=== PATIENT | male | born 1940 | race American Indian/Alaskan Native ===

== ENCOUNTER 2019-07-11 16:07 | Observation (INO) | payer MEDICARE ==
[2019-07-11 17:24] LABS: Basophils % (Auto) 0.5 % (0.0-1.8); Eosinophils % (Auto) 0.5 % (0.0-4.3); Hematocrit 38.5 % (35.5-45.6); Hemoglobin 13.2 gm/dl (11.8-15.2); Lymphocytes % (Auto) 17.6 % (13.4-35.0); Mean Corpuscular HGB Conc 34 % (32-34); Mean Corpuscular Volume 95 fl (84-94); Monocytes # (Auto) 0.5 K/mm3 (0.0-0.8); Monocytes % (Auto) 8.5 % (0.0-7.3); Platelet Count 166 K/mm3 (140-440); Red Blood Count 4.07 M/mm3 (3.65-5.03)
[2019-07-11] MEDS ORDERED: NACL 0.9% 1000 ML 1,000 ML IV ONE (17:40)
--- NOTE | 2019-07-11 17:45 | Emergency Department Report ---
ED General Adult HPI - General Chief complaint: Syncope Stated complaint: HEAT EXHAUSTION Time Seen by Provider: 07/11/19 17:11 Source: patient, EMS Mode of arrival: Stretcher Limitations: No Limitations - History of Present Illness Initial comments: This is an 79-year-old man who arrives with high presume his son. His son states he found him with a "joint". 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 The patient seems to have Nadia indifferance related to his emergency visit or perhaps is experiencing the effects of THC. He does however deny marijuana use. He denies injury. He denies syncope. His son states that he did pass out just briefly but had no apparent color change and did continue breathing. He states that he was very hot outside and that the patient may of had excessive heat exposure. -: minutes(s) - Related Data Allergies Allergy/AdvReac Type Severity Reaction Status Date / Time No Known Allergies Allergy Unverified 07/11/19 16:57 ED Review of Systems ROS: Stated complaint: HEAT EXHAUSTION Other details as noted in HPI Constitutional: denies: chills, fever Eyes: denies: eye pain, eye discharge, vision change ENT: denies: ear pain, throat pain Respiratory: denies: cough, shortness of breath, wheezing Cardiovascular: denies: chest pain, palpitations Endocrine: no symptoms reported Gastrointestinal: abdominal pain (initially did not complain of this but later said he had some suprapubic discomfort). denies: nausea, diarrhea Genitourinary: denies: urgency, dysuria Musculoskeletal: denies: back pain, joint swelling, arthralgia Skin: denies: rash, lesions Neurological: denies: headache, weakness, paresthesias Psychiatric: denies: anxiety, depression Hematological/Lymphatic: denies: easy bleeding, easy bruising ED Past Medical Hx - Past Medical History Hx Hypertension: No - Surgical History Past Surgical History?: Yes Additional Surgical History: hernia - Social History Smoking Status: Former Smoker Substance Use Type: Alcohol, Marijuana ED Physical Exam - General Limitations: No Limitations General appearance: alert, in no apparent distress - Head Head exam: Present: atraumatic, normocephalic - Eye Eye exam: Present: normal appearance, PERRL, EOMI. Absent: scleral icterus - ENT ENT exam: Present: mucous membranes moist - Neck Neck exam: Present: normal inspection. Absent: tenderness, meningismus - Respiratory Respiratory exam: Present: normal lung sounds bilaterally. Absent: respiratory distress - Cardiovascular Cardiovascular Exam: Present: regular rate, normal rhythm. Absent: systolic murmur, diastolic murmur, rubs, gallop - GI/Abdominal GI/Abdominal exam: Present: soft, normal bowel sounds. Absent: distended, tenderness, guarding, rebound, rigid - Rectal Rectal exam: Present: deferred - Extremities Exam Extremities exam: Present: normal inspection - Back Exam Back exam: Present: normal inspection - Neurological Exam Neurological exam: Present: alert, oriented X3, CN II-XII intact. Absent: motor sensory deficit (NIHSS is 0) - Psychiatric Psychiatric exam: Present: normal affect, normal mood - Skin Skin exam: Present: warm, dry, intact, normal color. Absent: rash ED Course Vital Signs 07/11/19 07/11/19 16:49 17:17 Temperature 97.4 F L Pulse Rate 77 Respiratory 18 18 Rate Blood Pressure 127/73 O2 Sat by Pulse 99 100 Oximetry ED Medical Decision Making - Lab Data Result diagrams: 07/11/19 17:15 07/11/19 17:15 Laboratory Results - last 24 hr 07/11/19 07/11/19 16:46 17:15 WBC 5.4 RBC 4.07 Hgb 13.2 Hct 38.5 MCV 95 H MCH 33 H MCHC 34 RDW 14.0 Plt Count 166 Lymph % (Auto) 17.6 [place] % (Auto) 8.5 H Eos % (Auto) 0.5 Baso % (Auto) 0.5 Lymph # 1.0 L [place] # 0.5 Eos # 0.0 Baso # 0.0 Seg Neutrophils % 72.9 H Seg Neutrophils # 4.0 POC Glucose 104 Laboratory Results - last 24 hr 07/11/19 07/11/19 07/11/19 16:46 17:15 17:15 WBC 5.4 RBC 4.07 Hgb 13.2 Hct 38.5 MCV 95 H MCH 33 H MCHC 34 RDW 14.0 Plt Count 166 Lymph % (Auto) 17.6 [place] % (Auto) 8.5 H Eos % (Auto) 0.5 Baso % (Auto) 0.5 Lymph # 1.0 L [place] # 0.5 Eos # 0.0 Baso # 0.0 Seg Neutrophils % 72.9 H Seg Neutrophils # 4.0 PT INR APTT Sodium 137 Potassium 3.4 L Chloride 100.0 Carbon Dioxide 25 Anion Gap 15 BUN 10 Creatinine 0.9 Estimated GFR > 60 BUN/Creatinine Ratio 11 Glucose 111 H POC Glucose 104 Calcium 8.7 Magnesium Total Bilirubin 0.40 AST 28 ALT 30 Alkaline Phosphatase 75 Total Creatine Kinase CK-MB (CK-2) CK-MB (CK-2) Rel Index Troponin T < 0.010 NT-Pro-B Natriuret Pep Total Protein 6.7 Albumin 3.8 L Albumin/Globulin Ratio 1.3 07/11/19 07/11/19 17:30 17:30 WBC RBC Hgb Hct MCV MCH MCHC RDW Plt Count Lymph % (Auto) [place] % (Auto) Eos % (Auto) Baso % (Auto) Lymph # [place] # Eos # Baso # Seg Neutrophils % Seg Neutrophils # PT 13.5 INR 1.06 APTT 22.5 L Sodium Potassium Chloride Carbon Dioxide Anion Gap BUN Creatinine Estimated GFR BUN/Creatinine Ratio Glucose POC Glucose Calcium Magnesium 2.00 Total Bilirubin AST ALT Alkaline Phosphatase Total Creatine Kinase 194 H CK-MB (CK-2) 2.8 CK-MB (CK-2) Rel Index 1.4 Troponin T < 0.010 NT-Pro-B Natriuret Pep 28.39 Total Protein Albumin Albumin/Globulin Ratio - EKG Data -: EKG Interpreted by Me EKG shows normal: sinus rhythm, axis, intervals, QRS complexes, ST-T waves Rate: normal - EKG Data Interpretation: other (somewhat low voltage RSR in V1 and V2 V3 qs consistent with old inferior dz ) - Radiology Data Radiology results: image reviewed (I don't see anything acute) Critical care attestation.: If time is entered above; I have spent that time in minutes in the direct care of this critically ill patient, excluding procedure time. ED Disposition Clinical Impression: Encephalopathy acute Syncope Qualifiers: Syncope type: heat syncope Encounter type: initial encounter Qualified Code(s): T67.1XXA - Heat syncope, initial encounter Disposition: OP ADMIT IP TO THIS HOSP Is pt being admited?: Yes Does the pt Need Aspirin: Yes Condition: Stable Instructions: Syncope (ED) Time of Disposition: 19:18
[2019-07-11 17:49] LABS: Alanine Aminotransferase 30 units/L (7-56); Albumin 3.8 g/dL (3.9-5); BUN/Creatinine Ratio 11; Blood Urea Nitrogen 10 mg/dL (9-20); Calcium 8.7 mg/dL (8.4-10.2); Hemolysis Index 5
[2019-07-11 18:04] LABS: Creatine Kinase MB 2.8 ng/mL (0.0-4.0)
[2019-07-11 18:07] LABS: INR 1.06 (0.87-1.13)
[2019-07-11 18:09] LABS: Partial Thromboplastin Time 22.5 Sec. (24.2-36.6)
--- NOTE | 2019-07-11 19:58 | Cat Scan Report ---
. CT head/brain wo con INDICATION: syncope. TECHNIQUE: All CT scans at this location are performed using the following dose modulation technique: Automated exposure control. CONTRAST: None. COMPARISON: None available. FINDINGS: The ventricular system is appropriate in size and configuration without midline shift. Nega tive for stroke or hemorrhage. A permeative lesion is seen at the posterior left frontal bone. There is associated periosteal reacti on and adjacent soft tissue. Approximate size is 3.5 cm. IMPRESSION: 1. Negative for stroke or hemorrhage. 2. Aggressive appearing lesion at the posterior left frontal bone with adjacent soft tissue involveme nt. Metastatic disease and primary bone tumor are the most likely etiologies. An atypical presentatio n of meningioma is thought to be less likely. Signer Name: Magdiel Shaffer MD Signed: 07/11/2019 7:54 PM Workstation Name: [id number]
[2019-07-11] MEDS: ASPIRIN PO SCH (20:01)
[2019-07-11 21:22] LABS: Bilirubin,Urine NEG (Negative); Blood,Urine SM (Negative); Color,Urine Straw (Yellow); Mucus,Urine FEW /HPF; Protein,Urine <15 mg/dL mg/dL (Negative); Urobilinogen,Urine < 2.0 mg/dL (<2.0); WBC,Urine < 1.0 /HPF (0.0-6.0)
[2019-07-11 21:32] LABS: Amphetamine Screen,Urine PRESUMPTIVE NEGATIVE; Benzodiazepines Screen,Urine PRESUMPTIVE NEGATIVE; Cocaine Screen,Urine PRESUMPTIVE NEGATIVE; Methadone Screen,Urine PRESUMPTIVE NEGATIVE; Opiate Screen,Urine PRESUMPTIVE NEGATIVE
[2019-07-11 21:44] LABS: Cannabinoid Screen,Urine PRESUMPTIVE POSITIVE
[2019-07-11] MEDS ORDERED: TYLENOL PO PRN (22:30)
[2019-07-11] MEDS ORDERED: ZOFRAN IV PRN (22:30)
[2019-07-11] MEDS ORDERED: SODIUM CHLORIDE FLUSH SYRINGE 10 ML IV PRN (22:30)
[2019-07-11] MEDS ORDERED: DILAUDID IV PRN (22:30)
[2019-07-11] MEDS ORDERED: NACL 0.9% 1000 ML 1,000 ML IV SCH (23:00)
[2019-07-11] MEDS ORDERED: K-DUR PO ONE (23:00)
--- NOTE | 2019-07-11 23:00 | Event Note ---
Date: 07/11/19 See H/p in reports Acute encephalopathy Syncope Hypokalemia
[2019-07-11] MEDS: SODIUM CHLORIDE FLUSH SYRINGE 10 ML IV SCH (23:52)
--- NOTE | 2019-07-12 00:01 | History and Physical Report ---
CHIEF COMPLAINT: Passed out for a few seconds at home. Witnessed. HISTORY OF PRESENT ILLNESS: An 79-year-old with no significant past medical history and not taking any medications, brought in because he passed out. The patient was apparently exposed to heat and was sitting in gazebo with his friends for a few hours. The patient denies syncope, but as per son the patient actually passed out for a few seconds. No seizures. No cough, no fever or chills. No chest pain. No shortness of breath on exertion. The patient had excessive heat exposure today. Today's temperatures were around 90-95. PAST MEDICAL HISTORY: None. PAST SURGICAL HISTORY: Hernia repair. SOCIAL HISTORY: Former smoker of marijuana on a regular basis. Alcohol occasionally. FAMILY HISTORY: Significant for hypertension. REVIEW OF SYSTEMS: Significant for syncope and some diaphoresis. Otherwise, review of systems negative. A 14-point review of systems done. PHYSICAL EXAMINATION: GENERAL: Elderly male, cooperative during examination. Alert, oriented. VITAL SIGNS: Blood pressure is 127/73, temperature is 97.4, pulse is 77, respirations are 18, sats are 99%. HEENT: Unremarkable. Pupils equal and reactive. NECK: Supple with no lymphadenopathy, no thyromegaly. LUNGS: Clear to auscultation and percussion. Good air entry. CARDIOVASCULAR: S1, S2 heard. No gallop, no murmur, no rub. Apical impulse in left fifth intercostal space in midclavicular line. ABDOMEN: Soft and benign. No hepatosplenomegaly. No guarding, no rigidity. Hernial orifices are normal. EXTREMITIES: Good pedal pulses. No pedal edema. CENTRAL NERVOUS SYSTEM: Alert and oriented x 4, nonfocal exam. LABORATORY DATA: Significant for white count of 5400, H and H are 13.2 and 38.5, platelet count is 166,000. Electrolytes are normal except for potassium, which is 3.4. Total CK is 194. Albumin is 3.8. Urine is negative. Urine drug screen is positive for marijuana. CT of the head shows negative for stroke or hemorrhage. Aggressive appearing lesion in the posterior frontal lobe with adjacent soft tissue involvement. Metastatic disease and primary bone tumor are the most likely etiologies. No atypical presentation of meningioma, is thought to be less likely. EKG shows normal sinus rhythm, heart rate of 78 per minute, no acute ST-T wave changes. ASSESSMENT AND PLAN: 1. Syncope. Syncope workup, which includes echocardiogram, Lexiscan and carotid duplex scan. 2. Hypokalemia, supplemented. 3. Meningioma, high possibility. We will get an MRI of the brain. 4. Marijuana dependence. The patient counseled. 5. Deep venous thrombosis prophylaxis. The patient on Lovenox. In summary, the patient had syncope. CT abnormality on the CAT scan with a frontal bone tumor. Hypokalemia. Positive THC in the urine. JOB# [id number] VSM/NTS MICHELLE
[2019-07-12 05:50] LABS: Basophils % (Auto) 0.4 % (0.0-1.8); Eosinophils % (Auto) 0.6 % (0.0-4.3); Hematocrit 41.1 % (35.5-45.6); Hemoglobin 13.7 gm/dl (11.8-15.2); Lymphocytes # (Auto) 1.2 K/mm3 (1.2-5.4); Lymphocytes % (Auto) 18.9 % (13.4-35.0); Mean Corpuscular HGB Conc 33 % (32-34); Mean Corpuscular Volume 96 fl (84-94); Monocytes # (Auto) 0.6 K/mm3 (0.0-0.8); Platelet Count 165 K/mm3 (140-440); Red Blood Count 4.27 M/mm3 (3.65-5.03); Red Cell Distribution Width 14.2 % (13.2-15.2)
[2019-07-12 06:19] LABS: Alanine Aminotransferase 46 units/L (7-56); Albumin 3.7 g/dL (3.9-5); BUN/Creatinine Ratio 15; Blood Urea Nitrogen 12 mg/dL (9-20); Calcium 8.8 mg/dL (8.4-10.2); Hemolysis Index 23
--- NOTE | 2019-07-12 10:12 | Vascular Lab Report ---
BILATERAL CAROTID DOPPLER ULTRASOUND INDICATION : syncope TECHNIQUE: Grayscale and color Doppler imaging performed through the neck. COMPARISON: None FINDINGS: Right: There is minimal partially calcified plaque at the bifurcation. Peak systolic velocity in th e CCA is 59 cm/s with end-diastolic velocity of 17 cm/s. Peak systolic velocity in the proximal ICA i s 76 cm/s with end-diastolic velocity of 24 cm/s. ICA to CCA ratio is less than 2. There is antegrade flow in the ECA and the vertebral artery. Left: There is mild partially calcified plaque at the bifurcation. Peak systolic velocity in the CCA is 91 cm/s with end-diastolic velocity of 21 cm/s. Peak systolic velocity in the proximal ICA is 58 c m/s with end-diastolic velocity of 20 cm/s. ICA to CCA ratio is less than 2. There is antegrade flow in the ECA and the vertebral artery. IMPRESSION: No hemodynamically significant stenosis by NASCET criteria. There is less than 50% lumina l narrowing in the carotid systems bilaterally. Signer Name: Jhoan Basurto Jr, MD Signed: 07/12/2019 10:08 AM Workstation Name: [id number]
--- NOTE | 2019-07-12 12:50 | Consultation ---
History of Present Illness Consult date: 07/12/19 Consult reason: syncope History of present illness: The patient is an 79-year-old man admitted to the hospital with syncope. He mohan cribes being out in the midafternoon sun, sitting with friends when he suddenly developed acute weakness, unable to raise his arms or legs, and this was followed by brief syncope. There was no chest pain, no shortness of breath, no palpitations. His symptoms resolved before arrival to the hospital. ECG in the emergency room was in sinus rhythm at 59, otherwise no acute ST or T-wave changes. He describes extensive prior cardiac ischemic or up including a cardiac catheterization done 3-4 years ago at [facility], which reported normal coronary arteries. An echocardiogram done today revealed normal left ventricular systolic function, ejection fraction 55-60%. Past History Past Medical History: hypertension Medications and Allergies Allergies Allergy/AdvReac Type Severity Reaction Status Date / Time No Known Allergies Allergy Unverified 07/11/19 16:57 Active Meds: Active Medications Acetaminophen (Tylenol) 650 mg PO Q4H PRN PRN Reason: Pain MILD(1-3)/Fever >100.5/URIBE Aspirin (Aspirin) 325 mg PO QDAY [facility] Last Admin: 07/11/19 20:01 Dose: 325 mg Documented by: Enoxaparin Sodium (Lovenox) 40 mg SUB-Q QDAY@2200 [facility] Famotidine (Pepcid) 20 mg PO BID [facility] Hydromorphone HCl (Dilaudid) 0.5 mg IV Q3H PRN PRN Reason: Pain , Severe (7-10) Sodium Chloride (Nacl 0.9% 1000 Ml) 1,000 mls @ 100 mls/hr IV DIRECT [facility] Ondansetron HCl (Zofran) 4 mg IV Q8H PRN PRN Reason: Nausea And Vomiting Sodium Chloride (Sodium Chloride Flush Syringe 10 Ml) 10 ml IV BID [facility] Last Admin: 07/11/19 23:52 Dose: 10 ml Documented by: Sodium Chloride (Sodium Chloride Flush Syringe 10 Ml) 10 ml IV PRN PRN PRN Reason: LINE FLUSH Tamsulosin HCl (Flomax) 0.4 mg PO QDAY [facility] Review of Systems Constitutional: weakness Cardiovascular: syncope, no chest pain, no orthopnea, no palpitations, no rapid/irregular heart beat, no edema, no lightheadedness, no shortness of breath Physical Examination Vital Signs Temp Pulse Resp BP Pulse Ox 97.4 F L 77 18 127/73 99 07/11/19 16:49 07/11/19 16:49 07/11/19 16:49 07/11/19 16:49 07/11/19 16:49 General appearance: no acute distress HEENT: Positive: PERRL Neck: Positive: neck supple Cardiac: Positive: Reg Rate and Rhythm Lungs: Positive: clear to auscultation Neuro: Positive: Grossly Intact Abdomen: Positive: Soft Male genitourinary: Positive: deferred Skin: Positive: Clear Extremities: Absent: edema Results 07/12/19 04:36 07/12/19 04:36 Cardiac Enzymes 07/11/19 07/11/19 07/12/19 Range/Units 17:15 17:30 04:36 AST 28 44 H (5-40) units/L CK-MB (CK-2) 2.8 (0.0-4.0) ng/mL Coagulation 07/11/19 Range/Units 17:30 PT 13.5 (12.2-14.9) Sec. INR 1.06 (0.87-1.13) APTT 22.5 L (24.2-36.6) Sec. CBC 07/11/19 07/12/19 Range/Units 17:15 04:36 WBC 5.4 6.5 (4.5-11.0) K/mm3 RBC 4.07 4.27 (3.65-5.03) M/mm3 Hgb 13.2 13.7 (11.8-15.2) gm/dl Hct 38.5 41.1 (35.5-45.6) % Plt Count 166 165 (140-440) K/mm3 Lymph # 1.0 L 1.2 (1.2-5.4) K/mm3 [place] # 0.5 0.6 (0.0-0.8) K/mm3 Eos # 0.0 0.0 (0.0-0.4) K/mm3 Baso # 0.0 0.0 (0.0-0.1) K/mm3 Comprehensive Metabolic Panel 07/11/19 07/12/19 Range/Units 17:15 04:36 Sodium 137 140 (137-145) mmol/L Potassium 3.4 L 3.7 (3.6-5.0) mmol/L Chloride 100.0 102.8 (98-107) mmol/L Carbon Dioxide 25 28 (22-30) mmol/L BUN 10 12 (9-20) mg/dL Creatinine 0.9 0.8 (0.8-1.5) mg/dL Glucose 111 H 139 H (75-100) mg/dL Calcium 8.7 8.8 (8.4-10.2) mg/dL AST 28 44 H (5-40) units/L ALT 30 46 (7-56) units/L Alkaline Phosphatase 75 68 (35-129) units/L Total Protein 6.7 6.4 (6.3-8.2) g/dL Albumin 3.8 L 3.7 L (3.9-5) g/dL EKG interpretations - Telemetry EKG Rhythm: Sinus Rhythm Assessment and Plan - Patient Problems (1) Syncope Current Visit: Yes Status: Acute Qualifiers: Syncope type: heat syncope Encounter type: initial encounter Qualified Code(s): T67.1XXA - Heat syncope, initial encounter Plan to address problem: Patient's presentation with acute weakness, altered mental status and brief syncope, would appear to suggest a neuro etiology. Recommend neurological evaluation and assessment. Extensive prior cardiac workup including a cardiac catheterization past few years revealed no significant coronary disease. An echocardiogram on this presentation shows normal left ventricle stent function, ejection fraction of 55-60%. I will cancel the stress test that was ordered until an optimal neuro assessment is completed. Other etiologies of transient syncope should also be evaluated including pulmonary embolism. We'll defer to internal medicine for workup of noncardiac etiologies.
--- NOTE | 2019-07-12 13:03 | Progress Note ---
Assessment and Plan Assessment and plan: The patient is an 79-year-old man with hx of BPH, skull mass currently under treatment presented following a syncopal epsiode and per son found with :JOINT" which is out of characer for the patient. Patient was admitted with suspicion for heat stroke. Acute Metabolic Encephalopathy-Resolving Syncpope Posterior frontal bone lesion Urinary retention Constipation ?IBS PLAN Continue supportive care MRI ordered Cardiology and Neurology consult KUB stool softner Start flomax DVT/GI prophy History Interval history: Patient seen and examined, resting comfortably, Laurent in place. 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 He reports gastric slowing and concerned that he should not have to take bowel regulating medication daily. He was noted to have over 700cc of urine and suspect bladder retention requiring laurent. Hospitalist Physical - Constitutional Vitals: Temp Pulse Resp BP Pulse Ox 98.3 F 60 18 146/72 98 07/12/19 07:34 07/12/19 07:34 07/12/19 07:34 07/12/19 07:34 07/12/19 07:34 General appearance: Present: no acute distress - EENT Eyes: Present: PERRL, EOM intact ENT: hearing intact, clear oral mucosa, dentition normal - Neck Neck: Present: supple, normal ROM - Respiratory Respiratory effort: normal Respiratory: bilateral: CTA - Cardiovascular Rhythm: regular Heart Sounds: Present: S1 & S2. Absent: systolic murmur - Extremities Extremities: no ischemia, pulses intact, pulses symmetrical, No edema, normal temperature, normal color, Full ROM - Abdominal General gastrointestinal: soft, non-tender, normal bowel sounds - Integumentary Integumentary: Present: clear (left head mass) - Psychiatric Psychiatric: appropriate mood/affect, intact judgment & insight, memory intact - Neurologic Neurologic: CNII-XII intact, moves all extremities - Allied Health Allied health notes reviewed: nursing Results - Labs CBC & Chem 7: 07/12/19 04:36 07/12/19 04:36 Labs: Laboratory Last Values WBC 6.5 K/mm3 (4.5-11.0) 07/12/19 04:36 RBC 4.27 M/mm3 (3.65-5.03) 07/12/19 04:36 Hgb 13.7 gm/dl (11.8-15.2) 07/12/19 04:36 Hct 41.1 % (35.5-45.6) 07/12/19 04:36 MCV 96 fl (84-94) H 07/12/19 04:36 MCH 32 pg (28-32) 07/12/19 04:36 MCHC 33 % (32-34) 07/12/19 04:36 RDW 14.2 % (13.2-15.2) 07/12/19 04:36 Plt Count 165 K/mm3 (140-440) 07/12/19 04:36 Lymph % (Auto) 18.9 % (13.4-35.0) 07/12/19 04:36 [place] % (Auto) 9.0 % (0.0-7.3) H 07/12/19 04:36 Eos % (Auto) 0.6 % (0.0-4.3) 07/12/19 04:36 Baso % (Auto) 0.4 % (0.0-1.8) 07/12/19 04:36 Lymph # 1.2 K/mm3 (1.2-5.4) 07/12/19 04:36 [place] # 0.6 K/mm3 (0.0-0.8) 07/12/19 04:36 Eos # 0.0 K/mm3 (0.0-0.4) 07/12/19 04:36 Baso # 0.0 K/mm3 (0.0-0.1) 07/12/19 04:36 Seg Neutrophils % 71.1 % (40.0-70.0) H 07/12/19 04:36 Seg Neutrophils # 4.6 K/mm3 (1.8-7.7) 07/12/19 04:36 PT 13.5 Sec. (12.2-14.9) 07/11/19 17:30 INR 1.06 (0.87-1.13) 07/11/19 17:30 APTT 22.5 Sec. (24.2-36.6) L 07/11/19 17:30 Sodium 140 mmol/L (137-145) 07/12/19 04:36 Potassium 3.7 mmol/L (3.6-5.0) 07/12/19 04:36 Chloride 102.8 mmol/L (98-107) 07/12/19 04:36 Carbon Dioxide 28 mmol/L (22-30) 07/12/19 04:36 13 mmol/L 07/12/19 04:36 BUN 12 mg/dL (9-20) 07/12/19 04:36 0.8 mg/dL (0.8-1.5) 07/12/19 04:36 Estimated GFR > 60 ml/min 07/12/19 04:36 15 % 07/12/19 04:36 Glucose 139 mg/dL (75-100) H 07/12/19 04:36 POC Glucose 104 (70-105) 07/11/19 16:46 6.0 % (4-6) 07/11/19 22:51 Calcium 8.8 mg/dL (8.4-10.2) 07/12/19 04:36 Magnesium 2.00 mg/dL (1.7-2.3) 07/11/19 17:30 < 0.20 mg/dL (0.1-1.2) 07/12/19 04:36 AST 44 units/L (5-40) H 07/12/19 04:36 ALT 46 units/L (7-56) 07/12/19 04:36 68 units/L (35-129) 07/12/19 04:36 194 units/L (55-170) H 07/11/19 17:30 CK-MB (CK-2) 2.8 ng/mL (0.0-4.0) 07/11/19 17:30 CK-MB (CK-2) Rel Index 1.4 (0-4) 07/11/19 17:30 < 0.010 ng/mL (0.00-0.029) 07/12/19 04:36 NT-Pro-B Natriuret Pep 28.39 pg/mL (0-900) 07/11/19 17:30 6.4 g/dL (6.3-8.2) 07/12/19 04:36 3.7 g/dL (3.9-5) L 07/12/19 04:36 1.4 % 07/12/19 04:36 Straw (Yellow) 07/11/19 21:06 Clear (Clear) 07/11/19 21:06 7.0 (5.0-7.0) 07/11/19 21:06 Ur Specific [place] 1.006 (1.003-1.030) 07/11/19 21:06 <15 mg/dl mg/dL (Negative) 07/11/19 21:06 Neg mg/dL (Negative) 07/11/19 21:06 Neg mg/dL (Negative) 07/11/19 21:06 Sm (Negative) 07/11/19 21:06 Neg (Negative) 07/11/19 21:06 Neg (Negative) 07/11/19 21:06 < 2.0 mg/dL (<2.0) 07/11/19 21:06 Ur Leukocyte Esterase Neg (Negative) 07/11/19 21:06 < 1.0 /HPF (0.0-6.0) 07/11/19 21:06 1.0 /HPF (0.0-6.0) 07/11/19 21:06 Few /HPF 07/11/19 21:06 Presumptive negative 07/11/19 21:06 Presumptive negative 07/11/19 21:06 Ur Barbiturates Screen Presumptive negative 07/11/19 21:06 Ur Phencyclidine Scrn Presumptive negative 07/11/19 21:06 Ur Amphetamines Screen Presumptive negative 07/11/19 21:06 U Benzodiazepines Scrn Presumptive negative 07/11/19 21:06 Presumptive negative 07/11/19 21:06 U Marijuana (THC) Screen Presumptive positive 07/11/19 21:06 Disclamer 07/11/19 21:06 Active Medications - Current Medications Current Medications: Generic Name Dose Route Start Last Admin Trade Name Freq PRN Reason Stop Dose Admin Acetaminophen 650 mg 07/11/19 22:30 Tylenol PO Q4H PRN Pain MILD(1-3)/Fever >100.5/URIBE Aspirin 325 mg 07/11/19 20:00 07/11/19 20:01 Aspirin PO 325 mg QDAY [facility] Administration Enoxaparin Sodium 40 mg 07/12/19 22:00 Lovenox SUB-Q QDAY@2200 [facility] Famotidine 20 mg 07/12/19 10:00 Pepcid PO BID [facility] Hydromorphone HCl 0.5 mg 07/11/19 22:30 Dilaudid IV Q3H PRN Pain , Severe (7-10) Sodium Chloride 1,000 mls @ 100 mls/hr 07/11/19 23:00 Nacl 0.9% 1000 Ml IV DIRECT [facility] Ondansetron HCl 4 mg 07/11/19 22:30 Zofran IV Q8H PRN Nausea And Vomiting Sodium Chloride 10 ml 07/11/19 23:00 07/11/19 23:52 Sodium Chloride Flush Syringe 10 Ml IV 10 ml BID [facility] Administration Sodium Chloride 10 ml 07/11/19 22:30 Sodium Chloride Flush Syringe 10 Ml IV PRN PRN LINE FLUSH Tamsulosin HCl 0.4 mg 07/12/19 13:00 Flomax PO QDAY [facility]
[2019-07-12] MEDS: FLOMAX PO SCH (13:06)
[2019-07-12] MEDS: ASPIRIN PO SCH (13:07)
[2019-07-12] MEDS: PEPCID PO SCH ×2 (13:08→21:42)
[2019-07-12] MEDS: SODIUM CHLORIDE FLUSH SYRINGE 10 ML IV SCH ×2 (13:09→21:43)
--- NOTE | 2019-07-12 13:58 | Magnetic Resonance Report ---
MRI BRAIN 07/12/2019 INDICATION / CLINICAL INFORMATION: Abnormal CT scan. Calvarial soft tissue mass.. TECHNIQUE: Multiplanar, multisequence MR images of the brain were obtained. COMPARISON: CT brain 07/11/2019 FINDINGS: BRAIN / INTRACRANIAL CONTENTS: Unenhanced and enhanced MR images of the brain were obtained. Correlat ion is made to the CT scan from 07/11/2019. There is an abnormal soft tissue mass centered in the left frontal calvarium, extending posteriorly f rom the plane of the coronal suture. There is abnormal bone marrow signal indicating osseous extensio n over a length of approximately 5.8 cm. Epidural and external periosteal soft tissue extension is pr esent, resulting in a mass with a maximum overall thickness, including the calvarium, of 3 cm. The ep idural component of the soft tissue mass is in contact with the surface of the left frontal lobe, but does not appear to invade. There is no evidence of reactive change within the brain parenchyma. No other lesions are identified. The brain itself shows no evidence of acute abnormality. Ventricles and sulci are normal in size and shape for a patient of this age. Mild chronic white matter T2 weighted hyperintensities are present. EXTRACRANIAL: Unremarkable CRANIOCERVICAL JUNCTION: No significant abnormality. VASCULAR FLOW-VOIDS: No significant abnormality. 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 Differential diagnosis would include osseous met astatic lesion, atypical meningioma, and less likely primary osseous lesion. Signer Name: Jona Lion MD Signed: 07/12/2019 1:53 PM Workstation Name: [id number]
[2019-07-12] MEDS ORDERED: MIRALAX 3350 PO PRN (14:34)
--- NOTE | 2019-07-12 15:36 | XRay Report ---
ABDOMEN 1 VIEW(S) INDICATION / CLINICAL INFORMATION: consitpation. COMPARISON: None available. FINDINGS: TUBES / LINES: None. BOWEL GAS PATTERN: Moderate to large stool is present throughout the length of the colon. No evidence for dilated bowel or space-occupying mass. No pathologic calcifications. FREE AIR / EXTRALUMINAL GAS: None seen. ADDITIONAL FINDINGS: No significant additional findings. IMPRESSION: Mild fecal retention. Signer Name: Jhoan Basurto Jr, MD Signed: 07/12/2019 3:32 PM Workstation Name: [id number]
[2019-07-12] MEDS ORDERED: SENOKOT PO SCH (22:00)
[2019-07-12] MEDS ORDERED: LOVENOX SUB-Q SCH (22:00)
--- NOTE | 2019-07-13 08:37 | XRay Report ---
CHEST 1 VIEW INDICATION: possible PE. COMPARISON: None FINDINGS: SUPPORT DEVICES: None. HEART / MEDIASTINUM: No significant abnormality. LUNGS / PLEURA: No significant pulmonary or pleural abnormality. No pneumothorax. ADDITIONAL FINDINGS: IMPRESSION: 1. No acute findings. Signer Name: Perez Márquez MD Signed: 07/13/2019 8:32 AM Workstation Name: [id number]
[2019-07-13 08:47] VITALS: BP 151/71
--- NOTE | 2019-07-13 09:43 | Progress Note ---
Assessment and Plan AMS -resolved Syncope a cardiac catheterization done 3-4 years ago at [facility], which reported normal coronary arteries per pt. an echocardiogram this admission revealed normal left ventricular systolic function, ejection fraction 55-60%. No further cardiac workup indicated. We'll defer to internal medicine for workup of noncardiac etiologies. We will follow intermittently. Subjective Date of service: 07/13/19 Interval history: Patient denies chest pain and shortness of breath. Objective Vital Signs Temp Pulse Pulse Resp BP Pulse Ox 07/13/19 08:05 97.8 F 20 151/71 07/13/19 05:03 70 07/13/19 02:30 49 L 89 07/13/19 02:27 97.8 F 66 18 149/81 98 07/13/19 02:00 66 18 98 07/12/19 20:31 98.6 F 64 18 118/70 94 07/12/19 14:00 80 07/12/19 13:10 98.1 F 80 18 149/76 96 - Physical Examination General: No Apparent Distress HEENT: Positive: PERRL Neck: Positive: neck supple Cardiac: Positive: Reg Rate and Rhythm Lungs: Positive: Decreased Breath Sounds Neuro: Positive: Grossly Intact Abdomen: Positive: Soft Extremities: Absent: edema
[2019-07-13] MEDS: FLOMAX PO SCH (09:55)
[2019-07-13] MEDS: PEPCID PO SCH (09:55)
[2019-07-13] MEDS: SODIUM CHLORIDE FLUSH SYRINGE 10 ML IV SCH (09:55)
[2019-07-13] MEDS: ASPIRIN PO SCH (09:55)
--- NOTE | 2019-07-13 09:57 | Nuclear Medicine Report ---
VENTILATION PERFUSION PULMONARY SCINTIGRAPHY HISTORY: Shortness of breath, evaluate for pulmonary embolus COMPARISON: 07/13/2019 at 0824 hours chest radiograph. TECHNIQUE: Radiopharmaceutical was inhaled. Tc-99m-MAA was then injected. Ventilation and perfusion images were acquired. RADIOPHARMACEUTICAL: 15 mCi of Xe-133 inhaled 5 mCi of Tc-99m-MAA injected FINDINGS: VENTILATION: No significant air trapping or defect. PERFUSION: No significant segmental or non-segmental defect. Additional Findings: None. IMPRESSION: 1. Low probability for pulmonary embolism. Signer Name: Jhoan Basurto Jr, MD Signed: 07/13/2019 9:53 AM Workstation Name: [id number]
--- NOTE | 2019-07-13 10:29 | Consultation ---
Past History Past Medical History: hypertension Medications and Allergies Allergies Allergy/AdvReac Type Severity Reaction Status Date / Time No Known Allergies Allergy Unverified 07/11/19 16:57 Home Medications Medication Instructions Recorded Confirmed Last Taken Type Esomeprazole Magnesium [NexIUM] 40 mg PO Q6HR PRN 07/12/19 07/13/19 Unknown History Active Meds: Active Medications Acetaminophen (Tylenol) 650 mg PO Q4H PRN PRN Reason: Pain MILD(1-3)/Fever >100.5/URIBE Aspirin (Aspirin) 325 mg PO QDAY [facility] Last Admin: 07/13/19 09:55 Dose: 325 mg Documented by: Enoxaparin Sodium (Lovenox) 40 mg SUB-Q QDAY@2200 [facility] Last Admin: 07/12/19 21:42 Dose: 40 mg Documented by: Famotidine (Pepcid) 20 mg PO BID [facility] Last Admin: 07/13/19 09:55 Dose: 20 mg Documented by: Hydromorphone HCl (Dilaudid) 0.5 mg IV Q3H PRN PRN Reason: Pain , Severe (7-10) Sodium Chloride (Nacl 0.9% 1000 Ml) 1,000 mls @ 100 mls/hr IV DIRECT [facility] Last Admin: 07/12/19 20:38 Dose: 100 mls/hr Documented by: Ondansetron HCl (Zofran) 4 mg IV Q8H PRN PRN Reason: Nausea And Vomiting Polyethylene Glycol (Miralax 3350) 17 gm PO QDAY PRN PRN Reason: Constipation Senna (Senokot) 17.2 mg PO QHS [facility] Last Admin: 07/12/19 21:42 Dose: 17.2 mg Documented by: Sodium Chloride (Sodium Chloride Flush Syringe 10 Ml) 10 ml IV BID [facility] Last Admin: 07/13/19 09:55 Dose: Not Given Documented by: Sodium Chloride (Sodium Chloride Flush Syringe 10 Ml) 10 ml IV PRN PRN PRN Reason: LINE FLUSH Tamsulosin HCl (Flomax) 0.4 mg PO QDAY [facility] Last Admin: 07/13/19 09:55 Dose: 0.4 mg Documented by: Physical Examination - Vital Signs Vital Signs: Vital Signs Temp Pulse Resp BP Pulse Ox 97.4 F L 77 18 127/73 99 07/11/19 16:49 07/11/19 16:49 07/11/19 16:49 07/11/19 16:49 07/11/19 16:49 Results - Laboratory Findings CBC and BMP: 07/12/19 04:36 07/12/19 04:36 Abnormal Lab Findings: Abnormal Labs 07/11/19 07/11/19 07/11/19 17:15 17:15 17:30 MCV 95 H MCH 33 H [place] % (Auto) 8.5 H Lymph # 1.0 L Seg Neutrophils % 72.9 H APTT 22.5 L Potassium 3.4 L Glucose 111 H AST Total Creatine Kinase Albumin 3.8 L 07/11/19 07/12/19 07/12/19 17:30 04:36 04:36 MCV 96 H MCH [place] % (Auto) 9.0 H Lymph # Seg Neutrophils % 71.1 H APTT Potassium Glucose 139 H AST 44 H Total Creatine Kinase 194 H Albumin 3.7 L Assessment and Plan NEUROLOGY CONSULT REPORT 79 YR OLD MALE WITH HIST OF
--- NOTE | 2019-07-13 10:30 | Consultation ---
Past History Past Medical History: hypertension Medications and Allergies Allergies Allergy/AdvReac Type Severity Reaction Status Date / Time No Known Allergies Allergy Unverified 07/11/19 16:57 Home Medications Medication Instructions Recorded Confirmed Last Taken Type Esomeprazole Magnesium [NexIUM] 40 mg PO Q6HR PRN 07/12/19 07/13/19 Unknown History Aspirin [Adult Aspirin] 81 mg PO DAILY #30 tablet.dr 07/13/19 Unknown Rx Polyethylene Glycol 3350 [Miralax 17 gm PO QDAY PRN #30 powd.pack 07/13/19 Unknown Rx 3350] Sennosides Tab [Senokot] 17.2 mg PO QHS #30 tablet 07/13/19 Unknown Rx Tamsulosin [Flomax] 0.4 mg PO QDAY #30 capsule 07/13/19 Unknown Rx Active Meds: Active Medications Acetaminophen (Tylenol) 650 mg PO Q4H PRN PRN Reason: Pain MILD(1-3)/Fever >100.5/URIBE Aspirin (Aspirin) 325 mg PO QDAY [facility] Last Admin: 07/13/19 09:55 Dose: 325 mg Documented by: Enoxaparin Sodium (Lovenox) 40 mg SUB-Q QDAY@2200 [facility] Last Admin: 07/12/19 21:42 Dose: 40 mg Documented by: Famotidine (Pepcid) 20 mg PO BID [facility] Last Admin: 07/13/19 09:55 Dose: 20 mg Documented by: Hydromorphone HCl (Dilaudid) 0.5 mg IV Q3H PRN PRN Reason: Pain , Severe (7-10) Sodium Chloride (Nacl 0.9% 1000 Ml) 1,000 mls @ 100 mls/hr IV DIRECT [facility] Last Admin: 07/12/19 20:38 Dose: 100 mls/hr Documented by: Ondansetron HCl (Zofran) 4 mg IV Q8H PRN PRN Reason: Nausea And Vomiting Polyethylene Glycol (Miralax 3350) 17 gm PO QDAY PRN PRN Reason: Constipation Senna (Senokot) 17.2 mg PO QHS [facility] Last Admin: 07/12/19 21:42 Dose: 17.2 mg Documented by: Sodium Chloride (Sodium Chloride Flush Syringe 10 Ml) 10 ml IV BID [facility] Last Admin: 07/13/19 09:55 Dose: Not Given Documented by: Sodium Chloride (Sodium Chloride Flush Syringe 10 Ml) 10 ml IV PRN PRN PRN Reason: LINE FLUSH Tamsulosin HCl (Flomax) 0.4 mg PO QDAY [facility] Last Admin: 07/13/19 09:55 Dose: 0.4 mg Documented by: Physical Examination - Vital Signs Vital Signs: Vital Signs Temp Pulse Resp BP Pulse Ox 97.4 F L 77 18 127/73 99 07/11/19 16:49 07/11/19 16:49 07/11/19 16:49 07/11/19 16:49 07/11/19 16:49 Results - Laboratory Findings CBC and BMP: 07/12/19 04:36 07/12/19 04:36 Abnormal Lab Findings: Abnormal Labs 07/11/19 07/11/19 07/11/19 17:15 17:15 17:30 MCV 95 H MCH 33 H [place] % (Auto) 8.5 H Lymph # 1.0 L Seg Neutrophils % 72.9 H APTT 22.5 L Potassium 3.4 L Glucose 111 H AST Total Creatine Kinase Albumin 3.8 L 07/11/19 07/12/19 07/12/19 17:30 04:36 04:36 MCV 96 H MCH [place] % (Auto) 9.0 H Lymph # Seg Neutrophils % 71.1 H APTT Potassium Glucose 139 H AST 44 H Total Creatine Kinase 194 H Albumin 3.7 L Assessment and Plan NEUROLOGY CONSULT REPORT. 79 YR OLD WITHNHISTORY OF NO SIGNIFICANT MEDICAL PROBLEM EXCEPT GERD,AND VIT B12 DEFICIENCY WHO HAS BEEN USING MARIJUANA FOR A LONG TIME OFF AND ON WAS BROUGHT TO THE HOSPITAL BECAUSE OF REPORTED SUDDEN LOSS OF CONSCIOUSNESS,WHEN HE WAS IN THE [place] WATCHING FAMILY MEM[employer]ERS SWIMMING IN ADJACENT THE SWIMMING POOL. PATIENT STATES THAT HE WAS TAKING MARIJUANA WHEN IT HAPPENED AND THAT THE DOSE COULD HAVE BEEN TOO MUCH. HE DENIES ANY POST ICTAL HEADACHE,OR LETHARGY.HE STATES THAT HE WAS COMING OUT OF IT OFF AND ON.DENIES ANY SEIZURE ACTIVITY SUCH CONVULSION ,CONFUSION OR POST ICTAL HEADACHE. NO PRIOR HIST OF SEIZURE. WORK UP AFTER AD [facility]ION INCLUDING EKG, ELECTROLYTES DID NOT SHOW ANY SIGNIFICANT ABNORMALITIES.CT SCAN AND MRI DID NOT SHOW ANY ACUTE INFARCT OR HEMORRHAGE. INCIDENTALLY BOTH CT AND MRI OF THE BRAIN PICKED UP AN EXTRA AXIAL CALVARIAL SOFT TISSUE MASS ON THE LEFT FRONTAL REGION WITHOUT INVOLVING THE LEFT FRONTAL LOBE BRAIN MASS. URINE DRUG SCREEN WAS POSITIVE FOR MARIJUANA. PHYSICAL EXAMINATION. IN NO ACUTE DISTRESS. PATIENT IS ALERT AND APPROPRIATE, ANSWERS QUESTIONS APPROPRIATELY AND HAS INSIGHT INTO HIS PROBLE.HIS MENTAL STATUS IS NORMAL. HEART-NORMAL RATE AND RYTHM. CAROTIDS-BOTH PALPABLE. CRANIAL NERVES-ALL WITHIN NORMAL LIMIT MOTOR- NO ASYMMETRY OF STRENGTH IN BOTH UPPER AND LOWER EXTREMITIES REFLEXES- ALL REFLEXES ARE WITH IN NORMAL LIMIT,WITH DOWN GOING TOES BILATERALLY. SENSORY-SENSORY EXAMINATION IS GROSSLY WITHIN NORMAL LIMIT. COORDINATION - COORDINATION IS NORMAL. GAIT- NORMAL GAIT. IMPRESSION. #1. PATIENT DOES NOT SEEM TO HAVE SEIZURE #2. DOES NOT SEEM TO HAVE ANY CARDIAC EVENT CONTRIBUTING TO HIS SYMPTOMS. # FROM A REASONABLE DEGREE OF MEDICAL CERTAINTY I BELIEVE IT WAS DUE TO MARIJUANA RECOMMENDATION. #!. PATIENT WAS CONSELED TO DISCONTINUE MARIJUANA, HE VOICED UNDERSTANDING. #2/ EXTRA AXIAL CALVARIAL LESION IS NOTHING NEW FOR PT, HE WAS AWARE OF IT HE WAS RECOMMENDED TO HAVE REGULAR FOLLOW UP FOR IT WITH HIS PHYSICIAN.
--- NOTE | 2019-07-13 10:42 | Discharge Summary ---
Providers - Providers Date of Admission: 07/11/19 19:22 Attending physician: ERICKA MICHELLE MD 07/11/19 22:52 Consult to Physician [CONS] Routine Comment: Consulting Provider: DAISY FRANKS Physician Instructions: Reason For Exam: Syncope 07/12/19 08:52 Consult to Physician [CONS] Routine Comment: called office/ juan m Consulting Provider: NIRANJAN ANDRADE Physician Instructions: Reason For Exam: Brain tumor 07/12/19 09:17 Physical Therapy Evaluation and Treat [CONS] Routine Comment: Reason For Exam: Weakness 07/12/19 22:18 Consult to Physician [CONS] Routine Comment: noted/ juan m Consulting Provider: YOVANI YANG Physician Instructions: Reason For Exam: syncope Hospitalization Condition: Stable Hospital course: Assessment and plan: The patient is an 79-year-old man with hx of BPH, skull mass currently under treatment presented following a syncopal epsiode and per son found with :JOINT" which is out of characer for the patient. Patient was admitted with suspicion for heat stroke. Acute Metabolic Encephalopathy-Resolving Syncpope Posterior frontal bone lesion Urinary retention Constipation ?IBS PLAN Continue supportive care MRI ordered Cardiology and Neurology consult KUB stool softner Start flomax DVT/GI prophy History Interval history: Patient seen and examined, resting comfortably, Laurent in place. 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 He reports gastric slowing and concerned that he should not have to take bowel regulating medication daily. He was noted to have over 700cc of urine and suspect bladder retention requiring laurent. Disposition: [id number] HOME UNDER HOME [facility] Time spent for discharge: 35 MINS Exam - Constitutional Vitals: Temp Pulse Resp BP Pulse Ox 97.8 F 70 20 151/71 89 07/13/19 08:05 07/13/19 05:03 07/13/19 08:05 07/13/19 08:05 07/13/19 02:30 Plan Activity: advance as tolerated, fall precautions Diet: low fat Special Instructions: record daily weights, record daily BP diary Additional Instructions: Continue to follow with Service Rig Operator onclogist in 1 week. PCP and UROLOGIST Follow up with: IVAN RAM [Other] - 7 Days DAISY FRANKS MD [Staff Physician] - 7 Days Prescriptions: Sennosides Tab [Senokot] 17.2 mg PO QHS #30 tablet Aspirin [Adult Aspirin] 81 mg PO DAILY #30 tablet. Tamsulosin [Flomax] 0.4 mg PO QDAY #30 capsule Polyethylene Glycol 3350 [Miralax 3350] 17 gm PO QDAY PRN #30 powd.pack PRN Reason: Constipation
--- NOTE | 2019-07-15 14:36 | Event Note ---
Date: 07/13/19 [id number]
--- NOTE | 2019-07-15 21:55 | Consultation ---
REFERRING PHYSICIAN: Dr. Carlin. REASON FOR CONSULTATION: Skull lesion. HISTORY OF PRESENT ILLNESS: I saw the patient, an 79-year-old male in the medical floor. The patient came to the hospital on the because of a syncope episode. The patient is from [facility] and has been following various physicians for his skull lesion. He came to the hospital when he was visiting his relatives and he passed out for a few seconds. No seizures. No cough. No fever. No chest pain. Shortness of breath. History of heat exposure. During this admission, the patient was found to have 5 cm lesion on the left temporal area. The patient says this had been biopsied in the past, was told it was not cancerous, details not clear, but as per the patient this lesion is increasing in size. I have been asked to evaluate the patient in view of this. During this admission, the patient has been seen by the neurologist who have advised to quit marijuana. He was also seen by the Nephrology team. The patient had undergone brain MRI. PAST MEDICAL HISTORY: Hypertension. REVIEW OF SYSTEMS: At this time, no headache, no visual disturbances, no ear discharge, no chest pain, no palpitation, no abdominal pain, no nausea, no vomiting, no dysuria, no seizure or syncope or loss of consciousness. ALLERGIES: No allergies. MEDICATIONS: Reviewed. PHYSICAL EXAMINATION: VITAL SIGNS: Temperature 97, pulse 66, respirations 18, BP 149/81. HEENT: No pallor. No icterus. NECK: No neck lymph nodes. HEENT: There is a swelling in the left temporal area. HEART: S1, S2. LUNGS: Clear to auscultation. ABDOMEN: Soft. EXTREMITIES: No calf tenderness. NEUROLOGIC: Alert, awake, oriented. LABORATORY DATA: White cell 6, hemoglobin 13, MCV 96, platelet 165. Potassium 3.7, creatinine 0.8, calcium 8.8, bilirubin 0.2. RADIOLOGY: MRI brain was done. This shows a lesion in the skull. ASSESSMENT: 1. Brain lesion. The patient has been followed by physicians. 2. History of marijuana usage. PLAN: CT chest was planned; however, because of allergy issues this was not given. I discussed with Dr. Carlin. We will look into CT without contrast, option of outpatient followup. JOB# [id number] NM/NTS
== END 2019-07-13 11:00 | disposition home health service (06) ==
LOC: ED 16:07 → INTOOBSV 19:22 → 2B-ACE 19:22
PROVIDERS: ADMIT Internal Medicine; ATTEND Internal Medicine
DX: R55 Syncope and collapse (principal); E87.6 Hypokalemia; D32.0 Benign neoplasm of cerebral meninges; F12.20 Cannabis dependence, uncomplicated
CPT/HCPCS: 36415; 51702; 70450; 70553; 71045; 74018; 78582; 80053; 80307; 81001; 82550; 82553; 82962; 83036; 83735; 83880; 84484; 85025; 85610; 85730; 93005; 93010; 93306; 93880; 96360; 96361; 96372; 99285; A9540; A9558; A9577; G0378; J1650; J7030